=== PATIENT | female | born 1950 ===

== ENCOUNTER → 2019-01-18 | Outpatient (CLI) | payer MEDICARE, OTHER | LOC: DL.CLIN 08:00 | DX: E11.9 Type 2 diabetes mellitus without complications (principal) | CPT/HCPCS: 99213 ==

== ENCOUNTER 2023-11-15 06:14 | Day surgery (SDC) | payer MEDICARE, OTHER ==
[2023-11-15] MEDS ORDERED: Sodium Chloride 0.9% 10 ML Syringe IV ONE (06:15)
[2023-11-15] MEDS ORDERED: Midazolam 1 MG/ML 2 ML SDV IV ONE (06:15)
[2023-11-15] MEDS ORDERED: Dexamethasone 4 MG/ML SDV IV ONE (06:15)
[2023-11-15] MEDS ORDERED: Ondansetron 4 MG/2 ML SDV IVPUSH PRN (06:30)
[2023-11-15] MEDS ORDERED: Acetaminophen/Codeine 300-30 MG Tab PO PRN (06:30)
[2023-11-15] MEDS ORDERED: Acetaminophen 325 MG Tab PO PRN (06:30)
[2023-11-15] MEDS ORDERED: Proparacaine 0.5% Ophth Soln 15 ML Bottle ONE (06:32)
[2023-11-15] MEDS: Proparacaine 0.5% Ophth Soln 15 ML Bottle EYELF ONE ×2 (06:38→07:43)
[2023-11-15] MEDS: Moxifloxacin 0.5% Ophth Soln 3 ML Bottle EYELF ONE (06:39)
[2023-11-15] MEDS: Povidone-Iodine 5% Sterile Ophth Soln 30 ML Bottle EYELF ONE ×2 (06:39→07:44)
[2023-11-15] MEDS: Tropicamide 1% Ophth Soln 15 ML Bottle EYELF ONE (06:40)
[2023-11-15] MEDS: Phenylephrine 10% Ophth Soln 5 ML Bot EYELF ONE (06:41)
[2023-11-15] MEDS: Timolol Maleate 0.5% Ophth Soln 5 ML Bottle EYELF ONE (06:41)
[2023-11-15] MEDS: Cataract Ophth Solution EYELF ONE (06:42)
[2023-11-15] MEDS: Sodium Chloride 0.9% 10 ML Syringe FLUSH PRN (06:49)
[2023-11-15] MEDS: Chondroitin Sulfate/Hyaluronate Sodium Ophth Inj 0.75 ML Syringe EYELF ONE ×2 (07:31→07:53)
[2023-11-15] MEDS: Diclofenac Sodium 0.1% Ophth Soln 5 ML Bottle EYELF ONE ×2 (07:32→07:58)
[2023-11-15] MEDS: Apraclonidine 0.5% Ophth Soln 5 ML Bot EYELF ONE ×2 (07:32→07:58)
[2023-11-15] MEDS: Dexamethasone/Tobramycin 0.1-0.3% Ophth Oint 3.5 GM Tube EYELF ONE ×2 (07:33→07:58)
[2023-11-15] MEDS: Vancomycin 500 MG SDV EYELF ONE (07:50)
[2023-11-15] MEDS: Balanced Salt Solution Ophth Irrig 500 ML Bottle IOCULAR ONE (07:50)
[2023-11-15] MEDS: Lidocaine 1% 30 ML SDV ONE (07:50)
== END 2023-11-15 08:34 | disposition home or self-care (01) ==
LOC: DL.SDS 06:14
PROVIDERS: ATTEND Ophthalmology
DX: E11.36 Type 2 diabetes mellitus with diabetic cataract (principal); E11.9 Type 2 diabetes mellitus without complications; E78.5 Hyperlipidemia, unspecified; Z79.899 Other long term (current) drug therapy; Z88.2 Allergy status to sulfonamides; Z79.84 Long term (current) use of oral hypoglycemic drugs
CPT/HCPCS: 00142; A9270-GY; C1780; J1100; J2250; J3370; J3490

== ENCOUNTER 2023-11-29 06:21 | Day surgery (SDC) | payer MEDICARE, OTHER ==
[2023-11-29] MEDS ORDERED: Proparacaine 0.5% Ophth Soln 15 ML Bottle ONE (06:29)
[2023-11-29] MEDS ORDERED: Ondansetron 4 MG/2 ML SDV IVPUSH PRN (06:30)
[2023-11-29] MEDS ORDERED: Acetaminophen/Codeine 300-30 MG Tab PO PRN (06:30)
[2023-11-29] MEDS ORDERED: Acetaminophen 325 MG Tab PO PRN (06:30)
[2023-11-29] MEDS ORDERED: Sodium Chloride 0.9% 10 ML Syringe FLUSH PRN (06:30)
[2023-11-29] MEDS: Proparacaine 0.5% Ophth Soln 15 ML Bottle EYERT ONE ×2 (06:34→07:53)
[2023-11-29] MEDS: Moxifloxacin 0.5% Ophth Soln 3 ML Bottle EYERT ONE (06:35)
[2023-11-29] MEDS: Povidone-Iodine 5% Sterile Ophth Soln 30 ML Bottle EYERT ONE ×2 (06:36→07:54)
[2023-11-29] MEDS: Tropicamide 1% Ophth Soln 15 ML Bottle EYERT ONE (06:37)
[2023-11-29] MEDS: Timolol Maleate 0.5% Ophth Soln 5 ML Bottle EYERT ONE (06:38)
[2023-11-29] MEDS: Phenylephrine 10% Ophth Soln 5 ML Bot EYERT ONE (06:38)
[2023-11-29] MEDS: Cataract Ophth Solution EYERT ONE (06:40)
[2023-11-29] MEDS: Proparacaine 0.5% Ophth Soln 15 ML Bottle EYELF ONE (07:53)
[2023-11-29] MEDS: Diclofenac Sodium 0.1% Ophth Soln 5 ML Bottle EYELF ONE (07:54)
[2023-11-29] MEDS: Apraclonidine 0.5% Ophth Soln 5 ML Bot EYELF ONE (07:54)
[2023-11-29] MEDS: Povidone-Iodine 5% Sterile Ophth Soln 30 ML Bottle EYELF ONE (07:54)
[2023-11-29] MEDS: Dexamethasone/Tobramycin 0.1-0.3% Ophth Oint 3.5 GM Tube EYERT ONE (07:54)
[2023-11-29] MEDS: Diclofenac Sodium 0.1% Ophth Soln 5 ML Bottle EYERT ONE (07:54)
[2023-11-29] MEDS: Dexamethasone/Tobramycin 0.1-0.3% Ophth Oint 3.5 GM Tube EYELF ONE (07:54)
[2023-11-29] MEDS: Apraclonidine 0.5% Ophth Soln 5 ML Bot EYERT ONE (07:54)
[2023-11-29] MEDS: Lidocaine 1% 30 ML SDV INJECT ONE (07:55)
[2023-11-29] MEDS: Vancomycin 500 MG SDV EYELF ONE (07:55)
[2023-11-29] MEDS: Vancomycin 500 MG SDV EYERT ONE (07:55)
== END 2023-11-29 08:30 | disposition home or self-care (01) ==
LOC: DL.SDS 06:21
PROVIDERS: ATTEND Ophthalmology
DX: E11.36 Type 2 diabetes mellitus with diabetic cataract (principal); E78.5 Hyperlipidemia, unspecified; Z79.84 Long term (current) use of oral hypoglycemic drugs; Z79.899 Other long term (current) drug therapy; Z88.2 Allergy status to sulfonamides; Z88.1 Allergy status to other antibiotic agents
CPT/HCPCS: A9270-GY; C1780; J3370; J3490